=== PATIENT | female | born 1970 | race Caucasian/White ===

== ENCOUNTER 2017-03-21 16:44 | Inpatient (IN) | payer BC ==
[~2017-03-21] VITALS: Ht 170.2 cm; Wt 75.7 kg
--- NOTE | ~2017-03-21 | H ---
[facility] [address] [address] HISTORY AND PHYSICAL Name: ROXY VARGAS Room #: 307-P [facility] IN .R.#: [id number] Admission: 03/21/17 Attend Phys: Vikash Mahoney MD Discharge: 03/22/17 Date of : 68 Report #: [id number] THIS REPORT FOR: //name// CC: Uriel Mahoney DICTATED BY: Areli CENTENO DATE OF SERVICE: 03/21/2017 ATTENDING PHYSICIAN: Yunier Donovan MD PRIMARY CARE PHYSICIAN: Dr. Vincent at [facility]. CHIEF COMPLAINT: Abdominal pain. HISTORY OF PRESENT ILLNESS: The patient is a 46-year-old female who has a history of hernia repair done a few years ago by ____, in which she had a mesh placed. She thinks that she had been doing well up until last night when she had fairly sudden onset of right lower quadrant abdominal pain. She had been feeling fine the rest of the day and had been eating normal meals. She last ate a chicken sandwich this evening and then the pain started. She does have a bowel movement today, which was small and liquid. She says the pain is stabbing and cramping and stays persistent in the right lower quadrant. She ended up driving herself here to be evaluated. She has been nauseated, but has not had any active vomiting. She was evaluated in the ER and admitted for bowel obstruction. She continued to rate her pain 7-8/10 and is requesting her pain meds to be adjusted. PAST MEDICAL HISTORY: Nephrolithiasis. PAST SURGICAL HISTORY: Hernia repair with mesh, jaw repair, sinus surgery. ALLERGIES: No known drug allergies. HOME MEDICATIONS: Zyrtec 10 mg at bedtime, Naproxen 500 mg t.i.d. p.r.n., Prozac 10 mg at bedtime, Contrave ER 80/90 one tab daily, alprazolam 0.25 mg at bedtime p.r.n., Singulair 10 mg p.o. at bedtime, and Flonase 2 sprays daily. SOCIAL HISTORY: The patient denies any tobacco or drug use. She does drink alcohol rarely. She has no children. She lives alone. 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 FAMILY HISTORY: Her mother is alive with a history of hypertension and hypothyroidism. Her father of lung cancer. Her grandmother had colon cancer. [address] [address] HISTORY AND PHYSICAL Name: ROXY VARGAS Room #: 307-P [facility] [id number] Admission: 03/21/17 Attend Phys: Vikash Mahoney MD Discharge: 03/22/17 Date of : 68 Report #: [id number] REVIEW OF SYSTEMS: Because of her family history of colon cancer, she has had colonoscopies. The last of which was 5 years ago, which she says was negative. All other 12-point review of systems was reviewed with the patient, otherwise negative unless stated in the HPI. PHYSICAL EXAMINATION: GENERAL: The patient is an alert female in no acute distress. VITAL SIGNS: Temperature is 37.0, heart rate 80, respirations 20, blood pressure is 153/92, oxygen 100% on room air. HEENT: PERRLA. Sclerae are nonicteric. Oral mucosa is pink and dry. NECK: Supple, no JVD noted. CARDIAC: Normal S1 and S2. No murmurs, rubs or gallops. RESPIRATORY: Breath sounds are clear bilaterally. No wheezing or rhonchi. Breathing is nonlabored. ABDOMEN: Round, soft. She is diffusely tender, but worse in the right lower quadrant. Bowel sounds are absent. VASCULAR: No edema noted. Pedal pulses are 2+. NEUROLOGIC: The patient is alert and oriented x 3. Speech is clear. She is moving all extremities equally. No focal neuro deficits noted. LABORATORIES AND DIAGNOSTICS: WBC is 12.4, hemoglobin 13.3, platelets 354. Sodium is 136, potassium 3.6, BUN 13, creatinine 0.8, glucose 112. LFTs are within normal limits. Lipase is 94. UA showed 3+ blood, 2+ leukocyte esterase, and many epithelial cells. CT of the abdomen and pelvis with contrast showed recurrent hernia involving the right lower quadrant abdominal wall and right inguinal region containing fat and a portion of an ileal loop of partial obstruction. There is incidental right ovarian cyst. ASSESSMENT AND PLAN: 1. Bowel obstruction. This was related to incarcerated hernia, which was unable to be reduced in the emergency room. We will consult Surgery. We will try to adjust pain medication, but if her pain persists, we will try an NG tube to decompress, continue with antiemetics and pain control. 2. Urinary tract infection. This may be contaminated, but urine will be sent for culture, and we will continue with Rocephin once a day. 3. Hypertension likely pain related. We will add hydralazine p.r.n. and continue with pain control. 4. Deep venous thrombosis prophylaxis, place sequential compression devices. [facility] [address] [facility] [place] [address] HISTORY AND PHYSICAL Name: ROXY VARGAS Room #: 307-P [facility] IN [facility]#: [id number] Admission: 03/21/17 Attend Phys: Vikash Mahoney MD Discharge: 03/22/17 Date of : 68 Report #: [id number] We will continue to follow the patient closely throughout the hospitalization and make changes based on clinical status. <ELECTRONICALLY SIGNED> By: Yunier Donovan MD 03/23/17 1152 [id number] Yunier Donovan MD /nt
--- NOTE | ~2017-03-21 | HC ---
[facility] [place] [address] CONSULTATION Name: ROXY VARGAS Grace Room #: 307-P [facility]..#: [id number] Admission: 03/21/17 Attend Phys: Vikash Mahoney MD Discharge: 03/22/17 Date of : 68 Report #: [id number] THIS REPORT FOR: //name// CC: Uriel Mahoney DATE OF SERVICE: 03/22/2017 REFERRING PROVIDER: Vikash Mahoney M.D. REASON FOR CONSULTATION: Abdominal pain. HISTORY OF PRESENT ILLNESS: The patient is a 46-year-old female who states she underwent a laparoscopic hernia repair a few years ago by my partner, Dr. Ronal Salvador at which time she underwent repair with placement of an intra-abdominal mesh. The patient has been doing quite well until 2 nights ago when she had sudden onset right lower quadrant abdominal pain accompanied with nausea, but no vomiting. The patient presented to the Emergency Room for evaluation at which time, she underwent workup with laboratories and a CT scan of the abdomen and pelvis. The patient's labs showed a very low level leukocytosis with a white blood cell count of 12.4 thousand and she had a left shift of 89% neutrophils. Her creatinine was normal and her liver function enzymes were normal as well. She then received a CT scan of the abdomen and pelvis which showed recurrent hernia in the right lower quadrant containing fat as well as a portion of the loop of ileum with partial obstruction as well as a right ovarian cyst. There was no evidence of a complete bowel obstruction and minimal dilatation to the small bowel. The patient's lactic acid was normal at 1.2 at that time as well. The patient was therefore admitted and I have been asked to evaluate in consultation today. Currently, the patient states she feels extremely well. She had a period of time a couple hours ago with significant improvement in her abdominal distention and pain to where she feels completely normal now and is passing flatus and having a bowel movement. The patient is hungry and has no complaints at this time. PAST MEDICAL HISTORY: Kidney stones and prior laparoscopic hernia repair. HOME MEDICATIONS: Zyrtec, naproxen, Prozac, Contrave ER, alprazolam, Singulair and Flonase. ALLERGIES: No known drug allergies. FAMILY HISTORY: Reviewed and noncontributory. SOCIAL HISTORY: No tobacco or illicit drug use and drinks alcohol rarely in only social situations. [facility] [address] [place] [address] CONSULTATION Name: ROXY VARGAS Room #: 307-P [facility]#: [id number] Admission: 03/21/17 Attend Phys: Vikash Mahoney MD Discharge: 03/22/17 Date of : 68 Report #: [id number] REVIEW OF SYSTEMS: GENERAL: The patient denies nocturnal fevers or chills. HEENT: No change in vision, change in hearing. NECK: No swelling or difficulty swallowing. HEART: No chest pain, palpitations. LUNGS: No cough or shortness of breath. ABDOMEN: Abdominal pain with nausea. GENITOURINARY: No dysuria or hematuria. ENDOCRINE: No polyuria, polydipsia. HEMATOLOGIC: No history of bleeding or easy bruising. EXTREMITIES: No history weakness or limited range of motion. NEUROLOGIC: No history of syncope or near syncopal episodes. SKIN AND INTEGUMENT: No history of abnormal lesions or moles. PSYCHIATRIC: No history of anxiety or depression. PHYSICAL EXAMINATION: VITAL SIGNS: Temperature 98.1, pulse 96, respirations 18, blood pressure 130/92. She stands 5 feet 7 inches tall and weighs 167 pounds. GENERAL: Alert and oriented, in no acute distress. HEENT: Normocephalic, atraumatic. Pupils equal, round, reactive to light. NECK: Supple, without lymphadenopathy. Trachea midline. HEART: Regular rate and rhythm. LUNGS: Clear to auscultation bilaterally. GASTROINTESTINAL: Abdomen currently soft, nontender, nondistended, positive bowel sounds. Her recurrent hernia is not easily palpable in the right lower quadrant. GENITOURINARY: Normal external female genitalia. EXTREMITIES: No clubbing, cyanosis or edema. NEUROLOGIC: Cranial nerves 2-12 are grossly intact. PSYCHIATRIC: Normal mood and affect. SKIN AND INTEGUMENT: No abnormal lesions or moles. LABORATORY AND X-RAY DATA: CBC shows white blood cell count of 9.6 thousand, hemoglobin 13.1, platelets 346,000. Her creatinine is 0.7. Lactic acid is normal at 0.7. CT scan of the abdomen and pelvis from last night was reviewed and as per HPI shows a fat containing recurrent right lower quadrant abdominal wall hernia with a portion of ileum contained within it, but no evidence of a high grade obstruction. ASSESSMENT AND PLAN: A 46-year-old female with what appears to be a recurrent incisional ventral hernia in the right lower abdomen containing likely omental fat as well as a portion of a loop of ileum. I suspect this ileum has managed to migrate out of the hernia defect at this time as she is completely asymptomatic and is passing gas and has no pain. My recommendation is to advance her diet as tolerated and if she tolerates this, she can go home with instructions to follow up closely with Dr. Salvador in the office at the [address] [place] [address] CONSULTATION Name: ROXY VARGAS Room #: 307-P [facility] IN M.R.#: [id number] Admission: 03/21/17 Attend Phys: Vikash Mahoney MD Discharge: 03/22/17 Date of : 68 Report #: [id number] available opportunity to discuss recurrent repair. The patient voices understanding all the above instructions as well as close return precautions and as such will be given a regular diet with plans to proceed as outlined above, I sincerely appreciate this consult. I will follow closely while hospitalized and leave any further recommendations in the patient's chart as appropriate. <ELECTRONICALLY SIGNED> By: Isamar Juarez MD, FACS 03/24/17 [id number] [id number] Isamar Juarez MD, FACS /nt
[~2017-03-21 16:44] MED LIST: AMITRIPTYLINE H10 M1; CIPROFLOXACIN500 M1 PO; IBUPROFEN 600600 M1 PO; NORCO 5-325 TA1 EACH PO; SINGULAIR 10 MG10 MG; ZOFRAN ODT4 MG PO
[2017-03-21 16:50] VITALS: BP 153/92
[2017-03-21 17:18] LABS: URINE BILIRUBIN NEGATIVE (Negative); URINE BLOOD 3+ (Negative); URINE COLOR YELLOW; URINE GLUCOSE-RANDOM* NEGATIVE (Negative); URINE KETONES NEGATIVE (Negative); URINE LEUKOCYTES-REFLEX 2+ (Negative); URINE PROTEIN (DIPSTICK) NEGATIVE (Negative); URINE SPECIFIC GRAVITY 1.015 (1.003-1.035); URINE UROBILINOGEN 0.2 E.U./dl (0.2-1.0)
[2017-03-21 17:28] LABS: CASTS None Seen /LPF (None Seen); CRYSTALS None Seen /LPF (None Seen); SQUAMOUS >10 Many /LPF (0-3); URINE RBC 3-10 Few /HPF (0-2); URINE WBC-REFLEX >25 Many /HPF (0-5)
[2017-03-21] MEDS ORDERED: PROZAC10 M1 PO (19:33)
[2017-03-21] MEDS ORDERED: ZYRTEC10 M5 PO (19:34)
[2017-03-21] MEDS ORDERED: XANAX 0.25 MG0.25 MG PO (19:34)
[2017-03-21] MEDS ORDERED: SINGULAIR 10 MG10 M1 PO (19:34)
[2017-03-21] MEDS ORDERED: CONTRAVE ER 8-1 EACH PO (19:35)
[2017-03-21 19:39] LABS: HEMATOCRIT 40.4 % (37.0-47.0); HEMOGLOBIN 13.3 gm/dL (12.0-15.0); MCH 26.7 pg (26.0-34.0); MCHC 32.9 g/dL (28.0-37.0); MCV 81.4 fL (80.0-100.0); PLATELET COUNT 354 thou/uL (150-400); RBC 4.97 mil/uL (4.20-5.00); RDW 16.2 % (10.5-14.5); WBC 12.4 thou/uL (4.0-11.0)
[2017-03-21 19:40] LABS: MANUAL DIFF YES
[2017-03-21 19:51] LABS: CALCIUM 9.8 mg/dL (8.5-10.1); CREATININE 0.8 mg/dL (0.6-1.0); POTASSIUM 3.6 mmol/L (3.5-5.1)
[2017-03-21 19:56] LABS: ALBUMIN 4.2 g/dL (3.4-5.0); TOTAL BILIRUBIN 0.3 mg/dL (<0.1-1.0); TOTAL PROTEIN 8.1 g/dL (6.4-8.2)
[2017-03-21 20:03] LABS: ANISOCYTOSIS 1+; POLYCHROMASIA OCCASIONAL; TOTAL CELL COUNT 100
[2017-03-21] MEDS ORDERED: NAPROSYN500 MG PO (23:52)
[2017-03-21] MEDS ORDERED: FLONASE 0.05%50 MCG NASAL (23:52)
[2017-03-22 04:00] VITALS: BP 130/87
[2017-03-22 04:00] LABS: HEMATOCRIT 39.8 % (37.0-47.0); HEMOGLOBIN 13.1 gm/dL (12.0-15.0); MCH 26.8 pg (26.0-34.0); MCHC 32.8 g/dL (28.0-37.0); MCV 81.7 fL (80.0-100.0); RBC 4.87 mil/uL (4.20-5.00); RDW 16.3 % (10.5-14.5); WBC 9.6 thou/uL (4.0-11.0)
[2017-03-22 04:08] LABS: CALCIUM 8.5 mg/dL (8.5-10.1); CREATININE 0.7 mg/dL (0.6-1.0); MAGNESIUM 1.8 mg/dL (1.8-2.4); POTASSIUM 3.9 mmol/L (3.5-5.1)
[2017-03-22 07:50] VITALS: BP 130/92
[2017-03-22 18:27] VITALS: BP 130/92
== END 2017-03-22 18:30 | disposition home or self-care (01) | DRG 394 ==
LOC: ER 16:44 → 3N 22:02 → EROBS 22:02 → 3N 22:58
PROVIDERS: Nurse Practitioner Acute Care; Physician Assistant
DX: K43.0 Incisional hernia with obstruction, without gangrene (principal); N39.0 Urinary tract infection, site not specified; K40.30 Unilateral inguinal hernia, with obstruction, without gangrene, not specified as recurrent; D72.829 Elevated white blood cell count, unspecified; I10 Essential (primary) hypertension; Z87.442 Personal history of urinary calculi; Z82.49 Family history of ischemic heart disease and other diseases of the circulatory system; Z80.1 Family history of malignant neoplasm of trachea, bronchus and lung; Z80.0 Family history of malignant neoplasm of digestive organs
CPT/HCPCS: 10795